=== PATIENT | female | born 1945 | race Caucasian/White ===

== ENCOUNTER 2018-04-03 09:49 | Day surgery (SDC) | payer MEDICARE ==
[~2018-04-03] VITALS: Ht 162.6 cm; Wt 82.6 kg
[~2018-04-03 09:49] MED LIST: AMLO10 PO; CITA20 PO; CLOP75 PO; DIAZ5 PO; DULO30 PO; ESOM20 PO; HYDACE5 PO; HYDCHL12.5 PO; LOPE2C PO; LORA10ER PO; POTCHL10ER PO; PRAV40 PO; Protonix40 MG PO; Sleep Aid25 M1 PO; Ziac 10-6.25 M1 EACH PO
== END 2018-04-03 22:45 | disposition home or self-care (01) ==
LOC: ORSCMMR 09:49 → ORD 11:00 → ORSCMMR 22:45
PROVIDERS: Internal Medicine Gastroenterology
PROC: 0DBN8ZX Excision of Sigmoid Colon, Via Natural or Artificial Opening Endoscopic, Diagnostic (ICD-10-PCS; principal; 2018-04-03 11:00)
PROC: 0DBK8ZX Excision of Ascending Colon, Via Natural or Artificial Opening Endoscopic, Diagnostic (ICD-10-PCS; principal; 2018-04-03 11:00)
PROC: 0DBM8ZX Excision of Descending Colon, Via Natural or Artificial Opening Endoscopic, Diagnostic (ICD-10-PCS; principal; 2018-04-03 11:00)
DX: R10.33 Periumbilical pain (principal); R19.7 Diarrhea, unspecified; K63.5 Polyp of colon; D12.2 Benign neoplasm of ascending colon; D12.3 Benign neoplasm of transverse colon; K57.30 Diverticulosis of large intestine without perforation or abscess without bleeding; F17.210 Nicotine dependence, cigarettes, uncomplicated; I69.320 Aphasia following cerebral infarction; I69.331 Monoplegia of upper limb following cerebral infarction affecting right dominant side
CPT/HCPCS: 88305; J0461; J7120

== ENCOUNTER 2023-06-07 12:12 | Emergency (ER) | payer MEDICARE ==
[~2023-06-07] VITALS: Ht 162.6 cm; Wt 65.8 kg
[~2023-06-07 12:12] MED LIST changes: +ALBU2.5V5 INH; +ALBU90OI INH; +Bisoprolol Fuma10 MG PO; +CELEXA40 M1 PO; -CITA20 PO; +DULERA 100 MCG/13 GM INH; +ELIQUIS5 M2 PO; +FAMO20 PO; +FURO20 PO; +METO100ER PO; +METO50ER PO; +PHENA200 PO; +POTA8 PO; -PRAV40 PO; +PRAVASTATIN SOD40 MG PO; +PRED20 PO; -Ziac 10-6.25 M1 EACH PO
[2023-06-07] MEDS ORDERED: LOSA25 PO (12:55)
[2023-06-07] MEDS ORDERED: METO50ER PO (12:56)
[2023-06-07] MEDS ORDERED: METO100ER PO (12:57)
[2023-06-07] MEDS ORDERED: TRAZ50 PO (12:58)
[2023-06-07] MEDS ORDERED: SERT100 PO (12:58)
[2023-06-07] MEDS ORDERED: IPRAT-ALBUT 0.5-3 ML INH (12:59)
[2023-06-07] MEDS ORDERED: Voltaren100 GM TOP ×3 (13:00→13:55)
[2023-06-07] MEDS ORDERED: ACET500 PO (13:55)
[2023-06-07] MEDS ORDERED: Robaxin750 MG PO (13:55)
[2023-06-07 15:31] VITALS: BP 109/63
== END 2023-06-07 15:50 | disposition home or self-care (01) ==
LOC: ER 12:12
DX: M25.552 Pain in left hip (principal); I10 Essential (primary) hypertension; I09.9 Rheumatic heart disease, unspecified; M19.90 Unspecified osteoarthritis, unspecified site; J44.9 Chronic obstructive pulmonary disease, unspecified; K21.9 Gastro-esophageal reflux disease without esophagitis; G47.00 Insomnia, unspecified; Z86.73 Personal history of transient ischemic attack (TIA), and cerebral infarction without residual deficits; F17.210 Nicotine dependence, cigarettes, uncomplicated; Z79.899 Other long term (current) drug therapy; Z88.5 Allergy status to narcotic agent; Z88.6 Allergy status to analgesic agent; W19.XXXA Unspecified fall, initial encounter; Y92.009 Unspecified place in unspecified non-institutional (private) residence as the place of occurrence of the external cause
CPT/HCPCS: 73502; 99284-25; A9270

== ENCOUNTER 2023-07-11 01:44 | Inpatient (IN) | payer MEDICARE ==
[~2023-07-11] VITALS: Ht 162.6 cm; Wt 65.8 kg
[~2023-07-11 01:44] MED LIST changes: +ACET500 PO; +IPRATROPIUM BRO30 ML; +LOSA25 PO; +Robaxin750 MG PO; +SERT100 PO; +TRAZ50 PO; +Voltaren100 GM TOP
[2023-07-11 02:24] LABS: Albumin, Blood 3.3 g/dL (3.4-5.0); Albumin/Globulin Ratio 0.8 (0.8-1.8); Bilirubin, Total 0.9 mg/dL (0.1-1.0); Calcium, Blood 8.8 mg/dL (8.5-10.1); Creatinine, Blood 0.48 mg/dL (0.40-1.00); Potassium, Blood 4.5 mmol/L (3.5-5.5); Total Protein, Blood 7.3 g/dL (6.4-8.2)
[2023-07-11 02:45] LABS: BASOPHILS ABSOLUTE AUTO 0.08 K/mm3 (0.00-0.23); BASOPHILS PERCENT AUTO 1 % (0-2); EOSINOPHILS ABSOLUTE AUTO 0.03 K/mm3 (0.00-0.68); EOSINOPHILS PERCENT AUTO 0 % (0-6); Hematocrit 42.2 % (33.0-51.0); Hemoglobin 12.8 g/dL (11.5-16.0); IMMATURE GRAN ABSOLUTE AUTO 0.09 K/mm3 (0.00-0.10); IMMATURE GRAN PERCENT AUTO 1 % (0-1); LYMPHOCYTES ABSOLUTE AUTO 2.34 K/mm3 (0.84-5.20); LYMPHOCYTES PERCENT AUTO 15 % (21-46); MONOCYTES ABSOLUTE AUTO 1.05 K/mm3 (0.16-1.47); MONOCYTES PERCENT AUTO 7 % (4-13); Mean Corpuscular HGB 25.7 pg (26.0-34.0); Mean Corpuscular HGB Conc 30.3 g/dL (31.5-36.5); Mean Corpuscular Volume 85 fL (80-100); NEUTROPHILS ABSOLUTE AUTO 12.14 K/mm3 (1.96-9.15); NEUTROPHILS PERCENT AUTO 77 % (41-73); Platelet Count 251 K/mm3 (150-400); RDW Coefficient Variation 17.9 % (11.7-14.2); RDW Standard Deviation 54.7 fL (35.1-46.3); Red Blood Cell Count 4.99 M/mm3 (3.80-5.20); White Blood Cell Count 15.73 K/mm3 (4.00-11.30)
[2023-07-11 02:58] LABS: Source, Urine Clean Catch
[2023-07-11 03:27] LABS: Bilirubin, Urine Neg (Neg); Blood, Urine 1+ (Neg); Glucose Qualitative, Urine Neg (Neg); Ketones, Urine Neg (Neg); Leukocyte Esterase, Urine Neg (Neg); Nitrite, Urine Pos (Neg); Protein, Urine 3+ (Neg); Urobilinogen, Urine NORM (Normal)
[2023-07-11] MEDS ORDERED: ELIQUIS5 M2 PO (03:30)
[2023-07-11 03:33] LABS: Appearance, Urine Cloudy (Clear); Color, Urine Yellow (P-Yellow)
[2023-07-11 03:34] LABS: Amorphous Mod (0-Heavy); Bacteria Few /hpf; Red Blood Cells, Urine 0-2 /hpf (0-2); Squamous Epithelial Cells Not Seen /hpf (Few); White Blood Cells, Urine 0-2 /hpf (0-5)
[2023-07-11 03:56] LABS: Influenza A, PCR NEGATIVE (NEGATIVE); Influenza B, PCR NEGATIVE (NEGATIVE); Resp Syncytial Virus, PCR NEGATIVE (NEGATIVE); SARS-Cov-2 (COVID-19) PCR, MMC NEGATIVE (NEGATIVE)
[2023-07-11 06:31] VITALS: BP 129/59
[2023-07-11 15:26] VITALS: BP 157/63
[2023-07-11] MEDS ORDERED: METO50ER PO (16:26)
--- NOTE | 2023-07-11 16:35 | NUR ---
PT IS A/OX3, FORGETFULL, PLEASANT AND COOPERATVE, EASILY REDIRECTED. PT WAS TITRATED OFF O2 WHILE UP , HOWEVER, NEEDED O2 WHILE LYING DOWN THIS AFTERNOON. PT REPORTS SOME LEFT HIP AND SHOULDER PAIN WHEN AMBULATING TODAY. SHE THOUGHT IT WAS CAUSED BY A RECENT FALL AT HOME. THE PT WAS UP IN THE CHAIR FOR MOST OF THE DAY. PT REMOVED THE MEASURING DEVICE FROM THE TOILLET THIS AFTERNOON AND HAD SEVERAL UNMEASURED VOIDS, SO UNABLE TO GET ACURATE I&0'S AT THIS TIME. CALL LIGHT IN REACH, THE PT IS IN THE CHAIR AT THIS TIME
[2023-07-11 19:22] VITALS: BP 143/74
--- NOTE | 2023-07-11 21:45 | NUR ---
PATIENT ASKED HELPER MARBLE FINISHER TO LOOK IN HER JACKET FOR HER GLASSES. UPON LOOKING IN PATIENTS JACKETS HELPER MARBLE FINISHER CAME UPON A DYE PADDER OPERATOR AND PART OF A CIGARETTE. HELPER MARBLE FINISHER NOTIFIED THIS RN. THIS RN EDUCATED PATIENT ON FACILITY POLICY-PATIENT EDUCATED AND AGREED TO HAVE HER DYE PADDER OPERATOR LOCKED UP AND CIGARETTE THROWN AWAY.
[2023-07-12 02:01] VITALS: BP 150/72
[2023-07-12 05:51] LABS: BASOPHILS ABSOLUTE AUTO 0.09 K/mm3 (0.00-0.23); BASOPHILS PERCENT AUTO 1 % (0-2); EOSINOPHILS ABSOLUTE AUTO 0.13 K/mm3 (0.00-0.68); EOSINOPHILS PERCENT AUTO 1 % (0-6); Hematocrit 39.1 % (33.0-51.0); Hemoglobin 12.1 g/dL (11.5-16.0); IMMATURE GRAN ABSOLUTE AUTO 0.04 K/mm3 (0.00-0.10); IMMATURE GRAN PERCENT AUTO 0 % (0-1); LYMPHOCYTES ABSOLUTE AUTO 3.38 K/mm3 (0.84-5.20); LYMPHOCYTES PERCENT AUTO 23 % (21-46); MONOCYTES ABSOLUTE AUTO 0.97 K/mm3 (0.16-1.47); MONOCYTES PERCENT AUTO 7 % (4-13); Mean Corpuscular HGB 25.6 pg (26.0-34.0); Mean Corpuscular HGB Conc 30.9 g/dL (31.5-36.5); Mean Corpuscular Volume 83 fL (80-100); Mean Platelet Volume 9.7 fL (9.1-12.4); NEUTROPHILS ABSOLUTE AUTO 10.24 K/mm3 (1.96-9.15); NEUTROPHILS PERCENT AUTO 69 % (41-73); Platelet Count 227 K/mm3 (150-400); RDW Coefficient Variation 18.2 % (11.7-14.2); RDW Standard Deviation 54.1 fL (35.1-46.3); Red Blood Cell Count 4.73 M/mm3 (3.80-5.20); White Blood Cell Count 14.85 K/mm3 (4.00-11.30)
[2023-07-12 06:09] LABS: Bun/Creatinine Ratio 33.2 (12.0-20.0); Calcium, Blood 8.9 mg/dL (8.5-10.1); Creatinine, Blood 0.75 mg/dL (0.40-1.00); Potassium, Blood 3.7 mmol/L (3.5-5.5)
--- NOTE | 2023-07-12 06:18 | NUR ---
PATIENT IS AOX3 WITH CONFUSION-PATIENT EASILY REORIENTED. PATIENT CALLS APPROPRIATELY AND IS ABLE TO MAKE HER NEEDS KNOWN. GAVE PATIENT A BOOK TO READ-PATIENT DOES NOT HAVE HER READING GLASSES WITH HER-UNABLE TO FIND ALTERNATIVE SOURCE. PATIENT IS PLEASANT. BED EXIT ALARM ENGAGED FOR PATIENT SAFETY. PATIENT IS A 1P ASSIST W/FWW. PATIENT IS STRICT I&O'S W/DAILY WEIGHT. BED IS LOCKED IN THE LOWEST POSITION WITH CALL LIGHT IN REACH. NO S/S OF DISTRESS NOTED AT THIS TIME.
[2023-07-12 07:34] VITALS: BP 148/85
[2023-07-12 15:45] VITALS: BP 134/72
--- NOTE | 2023-07-12 18:30 | NUR ---
SHIFT SUMMARY PATIENT ALERT AND INTERACTIVE. PATIENT AMBULATING WITH STAND BY ASSIST IN THE HALLS. PATIENT USING WALKER FOR AMBULATION. PATIENT IMPULSIVE AND FORGETFUL AT TIMES. SAFETY ALARMS IN PLACE FOR FALL RISK. PATIENT STATES BREATHING MUCH BETTER. REPORTED THAT PATIENT HAD NOT BEEN RECIEVING HER DIRUETICS AT FACILITY BECAUSE OF DELAY FROM PHARMACY WITH REFILL. PATIENT TO DISCHARGE BACK TO FACILITY WHEN MEDICALLY STABLE.
[2023-07-12 19:26] VITALS: BP 139/51
--- NOTE | 2023-07-13 00:28 | NUR ---
2310: PT IMPULSIVE, SET OFF BED ALARM x2, PT KICKED HER LEG OFF THE EDGE OF THE BED. PT 1P SBA TO THE TOILET WITH FWW. PT HAS STEADY GAIT. THE 4 P'S OF PATIENT EXPERIENCE ASSESSED WITH EACH HOURLY ROUNDING CHECK. PT PLEASANT, AND UNDERSTANDS TO CALL BEFORE GETTING UP OOB. CONTINUOUS REMINDERS MADE. PRN APAP GIVEN TO PT FOR C/O KARIMI. FLUIDS ENCOURAGED TOO. 0030: PT CURRENTLY UP OOB IN CHAIR EATING A SNACK. CALL LIGHT WITHIN REACH, CHAIR ALARM TURNED ON. FREQUENT SAFETY CHECKS COMPLETED THROUGHOUT THE SHIFT. CALL LIGHT WITHIN REACH, WCTM.
[2023-07-13 04:33] VITALS: BP 145/89
--- NOTE | 2023-07-13 06:12 | NUR ---
END OF SHIFT SUMMARY PT FINALLY APPEARED TO BE ASLEEP AT AROUND 0445. PT 1P SBA WITH FWW AND BRP. NO EVENTS OVERNIGHT, PT STAYED IN BED. BED ALARM TURNED ON, ITEMS WITHIN REACH ON TABLE NEAR BED WITH CALL LIGHT. RESP RATE EVEN AND UNLABORED. WCTM.
[2023-07-13 07:29] LABS: Hematocrit 42.4 % (33.0-51.0); Mean Corpuscular HGB 25.5 pg (26.0-34.0); Mean Corpuscular HGB Conc 30.7 g/dL (31.5-36.5); Mean Corpuscular Volume 83 fL (80-100); Mean Platelet Volume 9.5 fL (9.1-12.4); Platelet Count 267 K/mm3 (150-400); RDW Coefficient Variation 18.6 % (11.7-14.2); RDW Standard Deviation 54.8 fL (35.1-46.3); Red Blood Cell Count 5.09 M/mm3 (3.80-5.20); White Blood Cell Count 10.14 K/mm3 (4.00-11.30)
[2023-07-13 07:35] VITALS: BP 129/85
[2023-07-13 08:22] LABS: Bun/Creatinine Ratio 29.6 (12.0-20.0); Calcium, Blood 9.1 mg/dL (8.5-10.1); Creatinine, Blood 0.74 mg/dL (0.40-1.00); Potassium, Blood 3.9 mmol/L (3.5-5.5)
[2023-07-13 08:30] LABS: BASOPHILS PERCENT MAN 1 % (0-2); EOSINOPHILS PERCENT MAN 3 % (0-6); LYMPHOCYTES % ATYPICAL MANUAL 2 % (0-0); LYMPHOCYTES ABSOLUTE MAN 3.34 K/mm3 (0.84-5.20); LYMPHOCYTES PERCENT MAN 31 % (21-46); MONOCYTES ABSOLUTE MAN 1.11 K/mm3 (0.16-1.47); MONOCYTES PERCENT MAN 11 % (4-13); NEUTROPHILS ABSOLUTE MAN 5.27 K/mm3 (1.96-9.15); SEG NEUTROPHILS PERCENT MAN 52 % (41-73); TOTAL CELLS COUNTED 100
[2023-07-13] MEDS ORDERED: Calcium Carbon500 MG PO (11:59)
[2023-07-13] MEDS ORDERED: NICO21TP TOP (12:01)
--- NOTE | 2023-07-13 14:00 | NUR ---
SHIFT SUMMARY AND DISCHARGE PATIENT DISCHARGED BACK TO [facility]. PATIENT ALERT AND INTERACTIVE. CONTINUES TO BE IMPULSIVE AT TIMES WHEN NEEDING TO GO TO THE BATHROOM. DISCHARGE PLAN FAXED TO [facility] PER CASE MANAGEMENT. DISCHARGE INSTRUCTIONS REVIEWED WITH PATIENT AND SON. IV DC'D. PATIENT TAKEN OUT VIA WHEELCHAIR BY THIS NURSE. BELONGINGS RETURNED TO PATIENT. ROOM CHECK DONE WITH PATIENT AND SON PRIOR TO DEPARTURE.
== END 2023-07-13 13:50 | disposition hospice, home (50) | DRG 291 ==
LOC: ER 01:44 → MEDS 05:50 → ENPENDDIS 07-13 10:36 → MEDS 07-13 13:50
PROVIDERS: Emergency Medicine; Family Medicine; Student in an Organized Health Care Education/Training Program; ADMIT Internal Medicine
DX: I11.0 Hypertensive heart disease with heart failure (principal); I50.33 Acute on chronic diastolic (congestive) heart failure; J96.01 Acute respiratory failure with hypoxia; R65.10 Systemic inflammatory response syndrome (SIRS) of non-infectious origin without acute organ dysfunction; I48.20 Chronic atrial fibrillation, unspecified; F17.210 Nicotine dependence, cigarettes, uncomplicated; Z71.6 Tobacco abuse counseling; Z66 Do not resuscitate; Z86.73 Personal history of transient ischemic attack (TIA), and cerebral infarction without residual deficits; M19.90 Unspecified osteoarthritis, unspecified site; F32.A Depression, unspecified; K21.9 Gastro-esophageal reflux disease without esophagitis; G47.00 Insomnia, unspecified; J44.9 Chronic obstructive pulmonary disease, unspecified; K58.9 Irritable bowel syndrome, unspecified; Z90.49 Acquired absence of other specified parts of digestive tract; Z90.710 Acquired absence of both cervix and uterus; Z90.79 Acquired absence of other genital organ(s); Z90.722 Acquired absence of ovaries, bilateral; Z98.890 Other specified postprocedural states; Z88.5 Allergy status to narcotic agent; Z88.8 Allergy status to other drugs, medicaments and biological substances; Z79.01 Long term (current) use of anticoagulants; Z79.52 Long term (current) use of systemic steroids; Z79.899 Other long term (current) drug therapy; Z11.52 Encounter for screening for COVID-19
CPT/HCPCS: 0241U; 36415; 71045; 80048; 80053; 81001; 83605; 83880; 84145; 84484; 85025; 85379; 87040; 93005; 93010; 94640; 94664; 94761; 94762; 96365; 96375; 99285-25; A9270; J0456; J0696; J1940; J7050

== ENCOUNTER 2023-12-09 01:02 | Inpatient (IN) | payer MEDICARE ==
[~2023-12-09] VITALS: Ht 167.6 cm; Wt 73.2 kg
[2023-12-09] VITALS (13 sets, daily range): BP systolic 129–168; BP diastolic 46–79
[~2023-12-09 01:02] MED LIST changes: +Calcium Carbon500 MG PO; +NICO21TP TOP
[2023-12-09] MEDS ORDERED: Ondansetron HCl 2 MG / ML 2ML Vial IV ONE (01:15)
[2023-12-09] MEDS ORDERED: Ipratropium Bromide INH 0.02% 0.5 mg/2.5ML Vial INH SCH (01:15)
[2023-12-09] MEDS ORDERED: MethylPREDNISolone Sod Succ 125 MG Vial IV ONE (01:15)
[2023-12-09] MEDS ORDERED: Albuterol 2.5 MG/3 ML VIAL INH ONE (01:15)
[2023-12-09 01:20] LABS: BASOPHILS ABSOLUTE AUTO 0.15 K/mm3 (0.00-0.23); BASOPHILS PERCENT AUTO 1 % (0-2); EOSINOPHILS ABSOLUTE AUTO 0.66 K/mm3 (0.00-0.68); EOSINOPHILS PERCENT AUTO 4 % (0-6); Hematocrit 45.8 % (33.0-51.0); Hemoglobin 14.3 g/dL (11.5-16.0); IMMATURE GRAN ABSOLUTE AUTO 0.05 K/mm3 (0.00-0.10); IMMATURE GRAN PERCENT AUTO 0 % (0-1); LYMPHOCYTES ABSOLUTE AUTO 4.65 K/mm3 (0.84-5.20); LYMPHOCYTES PERCENT AUTO 31 % (21-46); MONOCYTES PERCENT AUTO 6 % (4-13); Mean Corpuscular HGB 29.9 pg (26.0-34.0); Mean Corpuscular HGB Conc 31.2 g/dL (31.5-36.5); Mean Corpuscular Volume 96 fL (80-100); Mean Platelet Volume 9.2 fL (9.1-12.4); NEUTROPHILS ABSOLUTE AUTO 8.48 K/mm3 (1.96-9.15); NEUTROPHILS PERCENT AUTO 57 % (41-73); Platelet Count 322 K/mm3 (150-400); RDW Coefficient Variation 18.1 % (11.7-14.2); RDW Standard Deviation 64.4 fL (35.1-46.3); Red Blood Cell Count 4.78 M/mm3 (3.80-5.20); White Blood Cell Count 14.89 K/mm3 (4.00-11.30)
[2023-12-09 01:24] LABS: Base Excess Venous -0.4 mmol/L; Bicarbonate Venous 22.9 mmol/L (24.0-30.0); PCO2 Venous 59.8 mmHg (38-42); pH Blood Venous 7.26 (7.34-7.37)
[2023-12-09] MEDS ORDERED: BREZTRI AEROS10.7 GM INH (01:35)
[2023-12-09 01:43] LABS: Albumin, Blood 3.5 g/dL (3.4-5.0); Albumin/Globulin Ratio 0.9 (0.8-1.8); Bilirubin, Total 0.8 mg/dL (0.1-1.0); Bun/Creatinine Ratio 24.8 (12.0-20.0); Calcium, Blood 8.6 mg/dL (8.5-10.1); Creatinine, Blood 0.56 mg/dL (0.40-1.00); Globulin, Blood 3.9 g/dL (2.2-4.0); Total Protein, Blood 7.4 g/dL (6.4-8.2)
[2023-12-09 01:58] LABS: Influenza A, PCR NEGATIVE (NEGATIVE); Influenza B, PCR NEGATIVE (NEGATIVE); Resp Syncytial Virus, PCR NEGATIVE (NEGATIVE); SARS-Cov-2 (COVID-19) PCR, MMC NEGATIVE (NEGATIVE)
[2023-12-09] MEDS ORDERED: Ondansetron HCl 2 MG / ML 2ML Vial IV PRN (02:50)
[2023-12-09] MEDS ORDERED: Ipratropium/Albuterol SulF 2.5-0.5MG/3 ML Amp INH PRN (02:50)
[2023-12-09] MEDS ORDERED: Furosemide 10 MG/ML 4ML Vial IV ONE (03:00)
[2023-12-09] MEDS ORDERED: Azithromycin 500 MG in NS 250 ML IV SCH (03:03)
[2023-12-09] MEDS ORDERED: NS 250 ML IV ONE (04:12)
[2023-12-09 04:52] LABS: International Normalized Ratio 1.06; Prothrombin Time Results 11.3 Sec (9.7-11.5)
[2023-12-09] MEDS ORDERED: MethylPREDNISolone Sod Succ 125 MG Vial IV SCH (06:00)
[2023-12-09 06:20] LABS: BASOPHILS ABSOLUTE AUTO 0.03 K/mm3 (0.00-0.23); BASOPHILS PERCENT AUTO 0 % (0-2); EOSINOPHILS PERCENT AUTO 0 % (0-6); Hematocrit 43.4 % (33.0-51.0); Hemoglobin 13.6 g/dL (11.5-16.0); IMMATURE GRAN ABSOLUTE AUTO 0.04 K/mm3 (0.00-0.10); IMMATURE GRAN PERCENT AUTO 0 % (0-1); LYMPHOCYTES ABSOLUTE AUTO 0.45 K/mm3 (0.84-5.20); LYMPHOCYTES PERCENT AUTO 4 % (21-46); MONOCYTES ABSOLUTE AUTO 0.14 K/mm3 (0.16-1.47); MONOCYTES PERCENT AUTO 1 % (4-13); Mean Corpuscular HGB 29.5 pg (26.0-34.0); Mean Corpuscular HGB Conc 31.3 g/dL (31.5-36.5); Mean Corpuscular Volume 94 fL (80-100); Mean Platelet Volume 9.2 fL (9.1-12.4); NEUTROPHILS PERCENT AUTO 94 % (41-73); Platelet Count 287 K/mm3 (150-400); RDW Coefficient Variation 18.2 % (11.7-14.2); RDW Standard Deviation 62.4 fL (35.1-46.3); Red Blood Cell Count 4.61 M/mm3 (3.80-5.20); White Blood Cell Count 11.76 K/mm3 (4.00-11.30)
[2023-12-09 06:43] LABS: Albumin, Blood 3.4 g/dL (3.4-5.0); Albumin/Globulin Ratio 0.8 (0.8-1.8); Bun/Creatinine Ratio 21.9 (12.0-20.0); Calcium, Blood 8.8 mg/dL (8.5-10.1); Creatinine, Blood 0.59 mg/dL (0.40-1.00); Potassium, Blood 5.5 mmol/L (3.5-5.5); Total Protein, Blood 7.4 g/dL (6.4-8.2)
[2023-12-09 08:33] LABS: pH Blood Venous 7.36 (7.34-7.37)
[2023-12-09 08:34] LABS: Base Excess Venous 3.9 mmol/L; Bicarbonate Venous 26.1 mmol/L (24.0-30.0); PCO2 Venous 52.7 mmHg (38-42)
[2023-12-09] MEDS ORDERED: Furosemide 10 MG / ML 2ML Vial IV SCH ×2 (09:00)
[2023-12-09] MEDS ORDERED: CefTRIAXone Sodium 1,000 MG in NS 100 ML IV SCH (09:00)
[2023-12-09] MEDS ORDERED: Apixaban 5 MG Tab PO SCH (09:00)
[2023-12-09] MEDS ORDERED: Enoxaparin 40 MG/0.4 ML SYR SC SCH (09:00)
[2023-12-09] MEDS ORDERED: Nicotine 14 MG PATCH TOP SCH (09:25)
--- NOTE | 2023-12-09 14:50 | NUR ---
ARRIVAL TO ICU/TRANSFER TO PCU PT ARRIVES TO ICU AT 0810 FOR COPD EXACERBATION. PT RESIDENT AT [facility]. REPORTS SOB FOR UNKNOWN TIME. PT POOR HISTORIAN, WHEN ASKED QUESTIONS, PT STATES "DON'T YOU KNOW?" PT ORIENTED TO SELF, HOSPITAL AND YEAR. PT SPEAKING IN FULL SENTENCES. LUNGS c CRACKLES THROUGHOUT. 5L VIA NC, O2 SATS >92%. AFIB ON MONITOR. TOLERATING PO WELL. DIRUESED, PUREWICK IN PLACE. SON UPDATED IN ROOM, THEN CALLED TO INFORM OF TRANSFER TO PCU. ALL BELONGINGS SENT c PT TO PCU 5. REPORT TO ANAMARIA GUILLEN.
--- NOTE | 2023-12-09 15:10 | NUR ---
TRANSFER: PT ARRIVED TO PCU 5 @1450 VIA BED. PT ALERT AND ORIENTED X3, ABLE TO FOLLOW COMMANDS AND MAKE NEEDS KNOWN. POOR HISTORIAN. FORGETFUL AT TIMES, BED ALARM ON FOR SAFETY. MINIMAL R. SIDE DEFECIT NOTED, PT WITH HX OF CVA. AFEBRILE. BP STABLE. HR AFIB 70'S. SPO2 >96% ON 5L NC. LUNG SOUNDS COARSE THROUGHOUT, WHEEZES IN BASES. PULSES STRONG AND EQUAL THROUGHOUT. ABD SOFT, NON TENDER, BOWEL SOUNDS +. PUREWICK IN PLACE, CONNECTED TO LIS. PT ORIENTED TO ROOM AND CALL LIGHT SYSTEM, BED IN LOW. PT SON UPDATED ON ROOM CHANGE PER BANK COMPLIANCE OFFICER. CALL LIGHT IN REACH.
[2023-12-09] MEDS ORDERED: Famotidine 20 MG Tab PO PRN (15:55)
[2023-12-09] MEDS ORDERED: Loperamide HCl 2 MG Cap PO PRN (20:45)
[2023-12-09] MEDS ORDERED: Metoprolol Succinate 50 MG TABCR PO SCH (21:00)
[2023-12-09] MEDS ORDERED: Pravastatin Sodium 20 MG Tab PO SCH (21:00)
[2023-12-10 03:09] VITALS: BP 121/56
[2023-12-10 03:51] LABS: BASOPHILS ABSOLUTE AUTO 0.03 K/mm3 (0.00-0.23); BASOPHILS PERCENT AUTO 0 % (0-2); EOSINOPHILS PERCENT AUTO 0 % (0-6); Hematocrit 42.2 % (33.0-51.0); Hemoglobin 13.5 g/dL (11.5-16.0); IMMATURE GRAN ABSOLUTE AUTO 0.12 K/mm3 (0.00-0.10); IMMATURE GRAN PERCENT AUTO 1 % (0-1); LYMPHOCYTES ABSOLUTE AUTO 0.99 K/mm3 (0.84-5.20); LYMPHOCYTES PERCENT AUTO 5 % (21-46); MONOCYTES ABSOLUTE AUTO 0.39 K/mm3 (0.16-1.47); MONOCYTES PERCENT AUTO 2 % (4-13); Mean Corpuscular HGB 29.7 pg (26.0-34.0); Mean Corpuscular Volume 93 fL (80-100); Mean Platelet Volume 9.4 fL (9.1-12.4); NEUTROPHILS ABSOLUTE AUTO 18.99 K/mm3 (1.96-9.15); NEUTROPHILS PERCENT AUTO 93 % (41-73); Platelet Count 272 K/mm3 (150-400); RDW Coefficient Variation 17.9 % (11.7-14.2); RDW Standard Deviation 61.6 fL (35.1-46.3); Red Blood Cell Count 4.54 M/mm3 (3.80-5.20); White Blood Cell Count 20.52 K/mm3 (4.00-11.30)
[2023-12-10 04:16] LABS: Albumin, Blood 3.1 g/dL (3.4-5.0); Albumin/Globulin Ratio 0.8 (0.8-1.8); Bilirubin, Total 0.9 mg/dL (0.1-1.0); Bun/Creatinine Ratio 32.2 (12.0-20.0); Calcium, Blood 9.1 mg/dL (8.5-10.1); Creatinine, Blood 0.56 mg/dL (0.40-1.00); Globulin, Blood 3.7 g/dL (2.2-4.0); Potassium, Blood 4.1 mmol/L (3.5-5.5); Total Protein, Blood 6.8 g/dL (6.4-8.2)
--- NOTE | 2023-12-10 06:05 | NUR ---
SHIFT SUMMARY A/Ox3 AND COOPERATIVE WITH CARE. FORGETFUL AT TIMES, BUT EASILY REDIRECTABLE. ABLE TO MAKE HER NEEDS KNOWN. CARDIAC, REMAINS IN AFIB/AFLUTTER RANGING 70-80 S WITH NO REPORTS OF CP, PRESSURE, OR PALPITATIONS. SBP RANGING 120-150'S. RESPIRATORY, MAINTAINS SPO2 >90% ON 3-4L NC. DENIES SOB OR DYSPNEA AT REST. GI/, INTERMITTENT INCONTINENCE DURING THE NIGHT. PURWICK PLACED WITH GOOD EFFECT COLLECTING YELLOW URINE. DENIES ANY ABD TENDERNESS N/V. PT REPORTED INCREASED RUNNY STOOLS. IMODIUM GIVEN PER EMAR. POLST FORM UPDATED PER PT'S WISHES. NO NEW ORDERS AT THIS TIME, WILL REPORT TO ONCOMING RN. ROSITA AGRAWAL OF THIS NOTE.
--- NOTE | 2023-12-10 06:36 | NUR ---
CODE STATUS UPDATE PT ORIGINALLY WANTED TO UPDATE HER OLD POLST FORM THAT WAS ON RECORD FROM 2022. DR. RAYGOZA CAME TO BEDSIDE AND SPOKE AT LENGTH WITH PT ABOUT HER CODE STATUS. PT AGREED TO NEW POLST FORM AND DNR CODE STATUS. LATER THIS AM, PT CALLS THIS RN TO ROOM STATING SHE WISHES TO CHANGE HER CODE STATUS AGAIN, BUT THIS TIME TO DNI. THIS RN TALKED WITH PT AT LENGTH AT CODE STATUS TO ENSURE THE PT'S WISHES. DR. MCKEON NOTIFIED OF PT'S WANT TO CHANGE TO DNI. NEW ORDERS TO BE PLACED TO REFLECT PT'S CURRENT WISHES. NO OTHER ORDERS AT THIS TIME.
[2023-12-10 07:26] VITALS: BP 126/76
[2023-12-10] MEDS ORDERED: Lactobacil 2-S.Thermo-Bifido 1 1 Cap PO SCH (09:00)
[2023-12-10] MEDS ORDERED: Losartan Potassium 25 MG Tab PO SCH (09:00)
[2023-12-10] MEDS ORDERED: Sertraline HCl 100 MG Tab PO SCH (09:00)
[2023-12-10] MEDS ORDERED: Metoprolol Succinate 50 MG TABCR PO SCH (09:00)
[2023-12-10 12:09] VITALS: BP 152/69
--- NOTE | 2023-12-10 12:46 | NUR ---
REPORT FROM PRIMARY RN. THIS RN TO ASSUME CARE WHILE PRIMARY AT LUNCH. PT RESTING IN BED, CALL LIGHT IN REACH. DENIES ANY CURRENT NEEDS.
[2023-12-10 15:32] VITALS: BP 151/101
[2023-12-10] MEDS ORDERED: MethylPREDNISolone Sod Succ 125 MG Vial IV SCH (16:00)
--- NOTE | 2023-12-10 18:05 | NUR ---
SHIFT SUMMARY: PT HAS BEEN A&Ox4, FORGETFUL AT TIMES AND POOR HISTORIAN, COOPERATIVE W/ADALBERTO, CONNIE, NO NOTICEABLE STRENGTH DEFICITS. PT DENIES SOB, O2 SATS >93% CURRENTLY ON 2 L/MIN VIA NC, COUGH PRODUCTIVE OF SMALL AMOUNT WHITE/YELLOW SPUTUM, SAMPLE COLLECTED AND SENT TO LAB. PT DENIES CP, AFIB/FLUTTER ON MONITOR W/RATE CONTROLLED IN 70s-80s. HIGH AMOUNT U.O. THIS SHIFT, PUREWICK IN PLACE TO SUCTION, DRAINING YELLOW COLORED URINE. NO BM THIS SHIFT. PT HAS BEEN ONE PERSON ASSIST W/FWW, SPENDS MOST OF DAY IN THE RECLINER AT BEDSIDE. PT IS RESTING QUIETLY IN ROOM W/CALL LIGHT IN REACH. WILL CONTINUE TO MONITOR AND TREAT ACCORDINGLY UNTIL CHANGE OF SHIFT.
[2023-12-10 20:14] VITALS: BP 167/81
[2023-12-10] MEDS ORDERED: Acetaminophen 325 MG TABLET PO PRN (20:55)
[2023-12-10 23:19] VITALS: BP 123/78
[2023-12-11 03:40] VITALS: BP 104/83
[2023-12-11 04:14] LABS: BASOPHILS ABSOLUTE AUTO 0.02 K/mm3 (0.00-0.23); BASOPHILS PERCENT AUTO 0 % (0-2); EOSINOPHILS PERCENT AUTO 0 % (0-6); Hematocrit 43.4 % (33.0-51.0); Hemoglobin 13.9 g/dL (11.5-16.0); IMMATURE GRAN ABSOLUTE AUTO 0.13 K/mm3 (0.00-0.10); IMMATURE GRAN PERCENT AUTO 1 % (0-1); LYMPHOCYTES ABSOLUTE AUTO 0.75 K/mm3 (0.84-5.20); LYMPHOCYTES PERCENT AUTO 5 % (21-46); MONOCYTES ABSOLUTE AUTO 0.27 K/mm3 (0.16-1.47); MONOCYTES PERCENT AUTO 2 % (4-13); Mean Corpuscular HGB 29.6 pg (26.0-34.0); Mean Corpuscular Volume 93 fL (80-100); Mean Platelet Volume 9.5 fL (9.1-12.4); NEUTROPHILS ABSOLUTE AUTO 15.07 K/mm3 (1.96-9.15); NEUTROPHILS PERCENT AUTO 93 % (41-73); Platelet Count 317 K/mm3 (150-400); RDW Coefficient Variation 18.3 % (11.7-14.2); RDW Standard Deviation 62.4 fL (35.1-46.3); Red Blood Cell Count 4.69 M/mm3 (3.80-5.20); White Blood Cell Count 16.24 K/mm3 (4.00-11.30)
[2023-12-11 04:36] LABS: Albumin, Blood 3.1 g/dL (3.4-5.0); Anion Gap 11 mmol/L (3-11); Blood Urea Nitrogen 31 mg/dL (8-24); Bun/Creatinine Ratio 49.4 (12.0-20.0); CO2, Blood 29 mmol/L (21-32); Chloride, Blood 101 mmol/L (98-108); Creatinine, Blood 0.63 mg/dL (0.40-1.00); Glomerular Filtration Rate 92 (60-); Glucose, Blood 182 mg/dL (70-99); Phosphorus, Blood 3.5 mg/dL (2.5-4.9); Potassium, Blood 3.8 mmol/L (3.5-5.5); Sodium, Blood 137 mmol/L (136-145)
--- NOTE | 2023-12-11 05:30 | NUR ---
SHIFT SUMMARY A/Ox3 AND COOPERATIVE WITH CARE. FORGETFUL AT TIMES, BUT EASILY REDIRECTABLE. ABLE TO MAKE HER NEEDS KNOWN. CARDIAC, REMAINS IN AFIB/AFLUTTER RANGING 60-80' S WITH NO REPORTS OF CP, PRESSURE, OR PALPITATIONS. SBP ELEVATED RANGING 120-160'S. RESPIRATORY, MAINTAINS SPO2 >90% ON 1-2L NC. DENIES SOB OR DYSPNEA AT REST. GI/, INTERMITTENT INCONTINENCE DURING THE NIGHT. PURWICK PLACED WITH GOOD EFFECT COLLECTING YELLOW URINE. DENIES ANY ABD TENDERNESS N/V. NO REPORTS OF RUNNY STOOL THIS SHIFT. NO NEW ORDERS AT THIS TIME, WILL REPORT TO ONCOMING RN. ROSITA AGRAWAL OF THIS NOTE.
[2023-12-11 07:37] VITALS: BP 139/81
[2023-12-11] MEDS ORDERED: Potassium Chloride 10 Meq Tablet SA PO ONE (08:00)
[2023-12-11] MEDS ORDERED: Furosemide 40 MG Tab PO SCH (09:00)
--- NOTE | 2023-12-11 09:48 | NUR ---
PT MEDICATED FOR NAUSEA PER EMAR
[2023-12-11 12:04] VITALS: BP 148/85
--- NOTE | 2023-12-11 13:20 | NUR ---
ASSUMING CARE OF PT WHILE PRIMARY RN TO LUNCH. PT SLEEPING IN BED. SHE IS MED STATUS WITH NO TELE ORDERS. VITALS ARE STABLE. CALL LIGHT IN REACH, SHE IS ABLE TO MAKE NEEDS KNOWN
[2023-12-11 15:50] VITALS: BP 155/106
--- NOTE | 2023-12-11 16:38 | NUR ---
Met with pt this afternoon. She is pleasantly confused, and cooperative. She tells me she owns her home in [place], and that's where she currently lives alone. However, her chart and daughter in law David shows she lives at [facility] in [place]. Reached out to [facility], received copy of pt's POLST that is filled out as "Attempt Resuscitation/CPR" in section A, and "Selective Treatment" in section B. This is directly contraindicated on the form itself. Will discuss further with pt, family and physician in the am. According to David, this is the patient's 4th hospitalization in the past year for SOB. We discussed hospice as an option. Both DIL and CG at [facility] both state this is appropriate given her increase in COPD and hospitalizations, but will have further discussion with pt's son before any changes made to patient's plan of care.
--- NOTE | 2023-12-11 18:05 | NUR ---
SHIFT SUMMARY/TRANSFER: PT HAS BEEN A&Ox3-4, ANSWERS QUESTIONS APPROPRIATELY, FORGETFUL AT TIMES AND POOR HISTORIAN. PT CONTINUES TO REPORT IMPROVEMENT TO SOB, O2 SATS HAVE BEEN MAINTAINED >93% ON 1 L/MIN VIA NC, COUGH SEEMS TO HAVE IMPROVED COMPARED TO YESTERDAY. PT ALSO DENIES CP, AFIB/FLUTTER ON MONITOR, RATE CONTROLLED IN 70s-80s. NO BM THIS SHIFT. HIGH U.O. CONTINUES THIS SHIFT, PUREWICK SET TO SUCTION AND DRAINING YELLOW COLORED URINE. PT TOLERATING ONE PERSON ASSIST WHILE TRANSFERING. PT's ADMISSION STATUS CHANGED TO MEDICAL, NEW ROOM ASSIGNMENT RECEIVED, REPORT TO NAMITA GUILLEN, PT TRANSFERED W/OUT INCIDENT.
[2023-12-11 19:40] VITALS: BP 144/74
[2023-12-11] MEDS ORDERED: MethylPREDNISolone Sod Succ 125 MG Vial IV SCH (21:00)
[2023-12-12] MEDS ORDERED: ALBUTEROL SULFATE INH (01:05)
[2023-12-12] MEDS ORDERED: BENZ100A PO (01:06)
[2023-12-12] MEDS ORDERED: LOPE2C PO (01:07)
[2023-12-12 04:46] VITALS: BP 142/80
[2023-12-12 05:06] LABS: BASOPHILS ABSOLUTE AUTO 0.01 K/mm3 (0.00-0.23); BASOPHILS PERCENT AUTO 0 % (0-2); EOSINOPHILS PERCENT AUTO 0 % (0-6); Hematocrit 43.4 % (33.0-51.0); Hemoglobin 13.9 g/dL (11.5-16.0); IMMATURE GRAN ABSOLUTE AUTO 0.09 K/mm3 (0.00-0.10); IMMATURE GRAN PERCENT AUTO 1 % (0-1); LYMPHOCYTES ABSOLUTE AUTO 1.02 K/mm3 (0.84-5.20); LYMPHOCYTES PERCENT AUTO 7 % (21-46); MONOCYTES ABSOLUTE AUTO 0.39 K/mm3 (0.16-1.47); MONOCYTES PERCENT AUTO 3 % (4-13); Mean Corpuscular HGB 29.8 pg (26.0-34.0); Mean Corpuscular Volume 93 fL (80-100); Mean Platelet Volume 9.4 fL (9.1-12.4); NEUTROPHILS ABSOLUTE AUTO 12.83 K/mm3 (1.96-9.15); NEUTROPHILS PERCENT AUTO 90 % (41-73); Platelet Count 317 K/mm3 (150-400); RDW Coefficient Variation 18.2 % (11.7-14.2); RDW Standard Deviation 62.9 fL (35.1-46.3); Red Blood Cell Count 4.66 M/mm3 (3.80-5.20); White Blood Cell Count 14.34 K/mm3 (4.00-11.30)
[2023-12-12] MEDS ORDERED: NS 250 ML IV PRN (05:10)
[2023-12-12 05:35] LABS: Albumin, Blood 3.2 g/dL (3.4-5.0); Anion Gap 6 mmol/L (3-11); Blood Urea Nitrogen 31 mg/dL (8-24); Bun/Creatinine Ratio 51.8 (12.0-20.0); CO2, Blood 31 mmol/L (21-32); Calcium, Blood 8.8 mg/dL (8.5-10.1); Chloride, Blood 99 mmol/L (98-108); Glomerular Filtration Rate 93 (60-); Glucose, Blood 142 mg/dL (70-99); Phosphorus, Blood 3.9 mg/dL (2.5-4.9); Potassium, Blood 4.3 mmol/L (3.5-5.5); Sodium, Blood 132 mmol/L (136-145)
[2023-12-12 07:41] VITALS: BP 129/73
--- NOTE | 2023-12-12 07:46 | NUR ---
SHIFT SUMMARY PT IS A&OX3, FORGETFUL, BUT COOPERATIVE. PT AWAKE MUCH OF THE NOC. [place]. VSS ON 1L NC. C/O KARIMI, MANAGED WITH 650 MG PO TYLENOL. PT ALSO NAUSEATED, IV ZOFRAN GIVEN. TOLERATING A HEART HEALTHY DIET. WICKING SYSTEM DRAINING CLEAR, YELLOW URINE. NO BM THIS SHIFT. BED IN LOWEST POSITION, CALL LIGHT WITHIN REACH. BED ALARM SET FOR PT'S SAFETY.
[2023-12-12] MEDS ORDERED: PredniSONE 20 MG Tab PO SCH (12:00)
[2023-12-12 15:28] VITALS: BP 146/93
--- NOTE | 2023-12-12 18:10 | NUR ---
SHIFT SUMMARY- PT HAS HAD NO ACUTE CHANGE T/O THE SHIFT. SHE IS A 1PA WITH AMBULATION SHE GETS "DIZZY" WITH POSITION CHANGES. SHE HAD A SHOWER. IV STEROIDS CHANGED TO PO TODAY. PLAN FOR POSSIBLE DC TOMORROW. PT SITTING UP IN BED EATING HER DINNER NO S&S OF DISTRESS NOTED. PT BECAME A BIT CONFUSED THIS EVENING AND GOT OUT OF BED TO ATTEMPT TO FIND HER CLOTHES TO GET READY TO GO. PT REDIRECTED AND IS AWARE SHE IS NOT LEAVING UNTIL LATER TOMORROW, AT THE SOONEST. PT IN BED, CALL LIGHT IN REACH BLASTING MACHINE OPERATOR ASSISTING WITH ATTENDS CHANGE AT THIS TIME. NO S&S OF DISTRESS.
[2023-12-12 19:54] VITALS: BP 160/76
[2023-12-12] MEDS ORDERED: Amoxicillin/Clavulanate K 875 MG Tab PO SCH (21:00)
[2023-12-13 03:43] VITALS: BP 144/81
[2023-12-13 04:57] LABS: BASOPHILS ABSOLUTE AUTO 0.03 K/mm3 (0.00-0.23); BASOPHILS PERCENT AUTO 0 % (0-2); EOSINOPHILS ABSOLUTE AUTO 0.01 K/mm3 (0.00-0.68); EOSINOPHILS PERCENT AUTO 0 % (0-6); Hematocrit 45.2 % (33.0-51.0); Hemoglobin 14.5 g/dL (11.5-16.0); IMMATURE GRAN ABSOLUTE AUTO 0.09 K/mm3 (0.00-0.10); IMMATURE GRAN PERCENT AUTO 1 % (0-1); LYMPHOCYTES ABSOLUTE AUTO 2.93 K/mm3 (0.84-5.20); LYMPHOCYTES PERCENT AUTO 19 % (21-46); MONOCYTES ABSOLUTE AUTO 1.32 K/mm3 (0.16-1.47); MONOCYTES PERCENT AUTO 9 % (4-13); Mean Corpuscular HGB 29.8 pg (26.0-34.0); Mean Corpuscular HGB Conc 32.1 g/dL (31.5-36.5); Mean Corpuscular Volume 93 fL (80-100); Mean Platelet Volume 9.4 fL (9.1-12.4); NEUTROPHILS ABSOLUTE AUTO 11.19 K/mm3 (1.96-9.15); NEUTROPHILS PERCENT AUTO 72 % (41-73); Platelet Count 332 K/mm3 (150-400); RDW Standard Deviation 61.6 fL (35.1-46.3); Red Blood Cell Count 4.87 M/mm3 (3.80-5.20); White Blood Cell Count 15.57 K/mm3 (4.00-11.30)
[2023-12-13 05:19] LABS: Bun/Creatinine Ratio 46.4 (12.0-20.0); Calcium, Blood 8.6 mg/dL (8.5-10.1); Creatinine, Blood 0.65 mg/dL (0.40-1.00); Potassium, Blood 4.1 mmol/L (3.5-5.5)
--- NOTE | 2023-12-13 05:53 | NUR ---
SHIFT SUMMARY: Pt is admitted for COPD exacerbation and is a DNR. is alert and able to make needs known. ADLs have been 1p but did not get out of bed during the night. Denies pain or discomfort when asked.
[2023-12-13 08:03] VITALS: BP 152/91
[2023-12-13] MEDS ORDERED: PredniSONE 20 MG Tab PO SCH (09:00)
[2023-12-13] MEDS ORDERED: ACET500 PO (11:50)
[2023-12-13] MEDS ORDERED: FURO40 PO (11:53)
[2023-12-13] MEDS ORDERED: AMOX875 PO (11:54)
[2023-12-13] MEDS ORDERED: Nicoderm Cq1 EAC1 TOP (11:55)
[2023-12-13] MEDS ORDERED: VISBIOME 112.51 EACH PO (11:55)
[2023-12-13] MEDS ORDERED: PRED20 PO (11:58)
--- NOTE | 2023-12-13 12:41 | NUR ---
CASE CONFERENCE: T/C WITH PT'S SON SAI REGARDING DNI STATUS. HE V/U AND CHANGED PT'S CODE STATUS TO DNR. CLIVE DUTTARN WITNESS TO T/C WITH SAI, SIGNED BY DR MCGARRY, SENT TO MED RECS AND STATE REGISTRY. CHANGING IN CHART AND SENDING ORIGINAL TO [facility]. ORIGINAL GIVEN TO FILTER WASHER TO PLACE IN PT'S RETURN PACKET.
--- NOTE | 2023-12-13 13:49 | NUR ---
CALLED [facility]- THEY WILL ENSURE THE PT MEDS ARE AT THE FACILITY TONIGHT. FACILITY IS AWARE THE PT IS RETURNING TODAY. FAMILY WILL TRANSPORT THE PT BACK TO HER HOME, AN ADULT FOSTER HOME IN [place]. PT HAS BEEN ON 1L VIA NC, REMOVED THE O2 TO ENSURE THE PT CAN MAINTAIN SATS AND PLACED HER ON O2 MONITOR, SATS 94% OR GREATER ON ROOM AIR.
--- NOTE | 2023-12-13 14:28 | NUR ---
DISCHARGE NOTE- PT RETURNING TO HER FACILITY. WILL PROVIDE WITH WRITTEN DISCHARGE INSTRUCTIONS. FACILITY AWARE SHE IS RETURNING HOME AFTER 5PM. MEDS FAXED TO [facility], PER THE FACILITY'S REQUEST. PT ON ROOM AIR, NO S&S OF DISTRESS NOTED.
--- NOTE | 2023-12-13 18:31 | NUR ---
DISCHARGE NOTE- PT DISCHARGED TO HER FACILITY. SON PRESENT TO PICK HER UP AND WAS GIVEN VERBAL AND PRINTED DISCHARGE INSTRUCTIONS AND ACKNOWLEDGED UNDERSTANDING OF THEM. IV DC'D PRIOR TO DISCHARGE.
== END 2023-12-13 17:29 | disposition home or self-care (01) | DRG 291 ==
LOC: ER 01:02 → ERHOLD 01:03 → PCU 02:48 → ERHOLD 02:48 → ICUE 02:48 → PCU 15:03 → MEDS 12-11 18:21
PROVIDERS: Family Medicine; Internal Medicine; Student in an Organized Health Care Education/Training Program; ADMIT Internal Medicine
PROC: 5A09357 Assistance with Respiratory Ventilation, Less than 24 Consecutive Hours, Continuous Positive Airway Pressure (ICD-10-PCS; principal; 2023-12-09)
DX: I11.0 Hypertensive heart disease with heart failure (principal); I50.33 Acute on chronic diastolic (congestive) heart failure; J96.21 Acute and chronic respiratory failure with hypoxia; J44.1 Chronic obstructive pulmonary disease with (acute) exacerbation; I69.351 Hemiplegia and hemiparesis following cerebral infarction affecting right dominant side; E87.4 Mixed disorder of acid-base balance; I48.20 Chronic atrial fibrillation, unspecified; F17.210 Nicotine dependence, cigarettes, uncomplicated; E78.5 Hyperlipidemia, unspecified; F41.8 Other specified anxiety disorders; F03.90 Unspecified dementia, unspecified severity, without behavioral disturbance, psychotic disturbance, mood disturbance, and anxiety; M19.90 Unspecified osteoarthritis, unspecified site; K21.9 Gastro-esophageal reflux disease without esophagitis; G47.00 Insomnia, unspecified; Z98.890 Other specified postprocedural states; Z90.49 Acquired absence of other specified parts of digestive tract; Z88.8 Allergy status to other drugs, medicaments and biological substances; Z88.5 Allergy status to narcotic agent; Z79.899 Other long term (current) drug therapy; Z79.01 Long term (current) use of anticoagulants; Z79.51 Long term (current) use of inhaled steroids; Z90.710 Acquired absence of both cervix and uterus; Z90.722 Acquired absence of ovaries, bilateral
CPT/HCPCS: 0241U; 36415; 71045; 80048; 80053; 80069; 82803; 83735; 83880; 84145; 84484; 85025; 85610; 87070; 87205; 93005; 93010; 94640; 94644; 94660; 94664; 94760; 94762; 96374; 96375; 97110; 97116; 97162; 97165; 97535; 99285-25; A9270; G0378; J0456; J0696; J1940; J2405; J2919; J7050; J7512

== ENCOUNTER 2024-01-01 18:39 | Inpatient (IN) | payer MEDICARE ==
[~2024-01-01] VITALS: Ht 157.5 cm; Wt 73.7 kg
[~2024-01-01 18:39] MED LIST changes: +ALBUTEROL SULFATE INH; +AMOX875 PO; +BENZ100A PO; +BREZTRI AEROS10.7 GM INH; +FURO40 PO; +Nicoderm Cq1 EAC1 TOP; +TRAZ100 PO; -TRAZ50 PO; +VISBIOME 112.51 EACH PO
[2024-01-01] MEDS ORDERED: Albuterol 2.5 MG/3 ML VIAL INH SCH (19:05)
[2024-01-01 19:18] LABS: BASOPHILS ABSOLUTE AUTO 0.07 K/mm3 (0.00-0.23); BASOPHILS PERCENT AUTO 1 % (0-2); EOSINOPHILS ABSOLUTE AUTO 0.41 K/mm3 (0.00-0.68); EOSINOPHILS PERCENT AUTO 4 % (0-6); Hematocrit 38.9 % (33.0-51.0); IMMATURE GRAN ABSOLUTE AUTO 0.05 K/mm3 (0.00-0.10); IMMATURE GRAN PERCENT AUTO 0 % (0-1); LYMPHOCYTES ABSOLUTE AUTO 1.48 K/mm3 (0.84-5.20); LYMPHOCYTES PERCENT AUTO 13 % (21-46); MONOCYTES ABSOLUTE AUTO 0.39 K/mm3 (0.16-1.47); MONOCYTES PERCENT AUTO 3 % (4-13); Mean Corpuscular HGB 30.5 pg (26.0-34.0); Mean Corpuscular HGB Conc 30.8 g/dL (31.5-36.5); Mean Corpuscular Volume 99 fL (80-100); Mean Platelet Volume 9.7 fL (9.1-12.4); NEUTROPHILS ABSOLUTE AUTO 9.07 K/mm3 (1.96-9.15); NEUTROPHILS PERCENT AUTO 79 % (41-73); Platelet Count 266 K/mm3 (150-400); RDW Coefficient Variation 18.6 % (11.7-14.2); RDW Standard Deviation 66.9 fL (35.1-46.3); Red Blood Cell Count 3.94 M/mm3 (3.80-5.20); White Blood Cell Count 11.47 K/mm3 (4.00-11.30)
[2024-01-01 19:40] LABS: Albumin/Globulin Ratio 0.8 (0.8-1.8); Bilirubin, Total 0.9 mg/dL (0.1-1.0); Bun/Creatinine Ratio 17.7 (12.0-20.0); Calcium, Blood 8.2 mg/dL (8.5-10.1); Creatinine, Blood 0.85 mg/dL (0.40-1.00); Globulin, Blood 3.7 g/dL (2.2-4.0); Total Protein, Blood 6.7 g/dL (6.4-8.2)
[2024-01-01] MEDS ORDERED: Furosemide 10 MG/ML 4ML Vial IV ONE (20:00)
[2024-01-01 20:08] LABS: Influenza A, PCR NEGATIVE (NEGATIVE); Influenza B, PCR NEGATIVE (NEGATIVE); Resp Syncytial Virus, PCR NEGATIVE (NEGATIVE); SARS-Cov-2 (COVID-19) PCR, MMC NEGATIVE (NEGATIVE)
[2024-01-01] MEDS ORDERED: Ipratropium/Albuterol SulF 2.5-0.5MG/3 ML Amp INH ONE (20:50)
[2024-01-01] MEDS ORDERED: Acetaminophen 500 MG Tab PO PRN (22:35)
[2024-01-01] MEDS ORDERED: Ipratropium/Albuterol SulF 2.5-0.5MG/3 ML Amp INH SCH (22:35)
[2024-01-01] MEDS ORDERED: Calcium Carbonate 500 MG Tab Chew PO PRN (22:35)
[2024-01-01] MEDS ORDERED: Albuterol 2.5 MG/3 ML VIAL INH PRN (22:35)
[2024-01-01] MEDS ORDERED: TraZODone HCl 100 MG Tab PO PRN (22:40)
[2024-01-01] MEDS ORDERED: Magnesium Hydroxide Conc 10 ML UDC PO PRN (22:50)
[2024-01-01] MEDS ORDERED: CefTRIAXone Sodium 1,000 MG in NS 100 ML IV ONE (22:55)
[2024-01-01 23:35] VITALS: BP 107/76
[2024-01-02] MEDS ORDERED: MethylPREDNISolone Sod Succ 40 MG VIAL IV SCH
[2024-01-02 05:42] LABS: BASOPHILS ABSOLUTE AUTO 0.02 K/mm3 (0.00-0.23); BASOPHILS PERCENT AUTO 0 % (0-2); EOSINOPHILS PERCENT AUTO 0 % (0-6); Hematocrit 38.7 % (33.0-51.0); Hemoglobin 12.1 g/dL (11.5-16.0); IMMATURE GRAN ABSOLUTE AUTO 0.04 K/mm3 (0.00-0.10); IMMATURE GRAN PERCENT AUTO 0 % (0-1); LYMPHOCYTES ABSOLUTE AUTO 0.63 K/mm3 (0.84-5.20); LYMPHOCYTES PERCENT AUTO 7 % (21-46); MONOCYTES ABSOLUTE AUTO 0.09 K/mm3 (0.16-1.47); MONOCYTES PERCENT AUTO 1 % (4-13); Mean Corpuscular HGB 30.6 pg (26.0-34.0); Mean Corpuscular HGB Conc 31.3 g/dL (31.5-36.5); Mean Corpuscular Volume 98 fL (80-100); Mean Platelet Volume 9.4 fL (9.1-12.4); NEUTROPHILS ABSOLUTE AUTO 8.75 K/mm3 (1.96-9.15); NEUTROPHILS PERCENT AUTO 92 % (41-73); Platelet Count 261 K/mm3 (150-400); RDW Coefficient Variation 18.5 % (11.7-14.2); RDW Standard Deviation 64.6 fL (35.1-46.3); Red Blood Cell Count 3.95 M/mm3 (3.80-5.20); White Blood Cell Count 9.53 K/mm3 (4.00-11.30)
--- NOTE | 2024-01-02 06:02 | NUR ---
Patient arrived to room from ED around 2320, admission completed with assistance of patient. Patient alert and oriented x4, compliant with care. Purewick in place for voids, tolerated well. IV antibiotics infused into left AC PIV, tolerated well. Patient mobilizing self in bed overnight, resting comfortably.
[2024-01-02 06:09] LABS: Albumin, Blood 2.9 g/dL (3.4-5.0); Albumin/Globulin Ratio 0.8 (0.8-1.8); Bilirubin, Total 0.8 mg/dL (0.1-1.0); Bun/Creatinine Ratio 20.3 (12.0-20.0); Calcium, Blood 8.9 mg/dL (8.5-10.1); Creatinine, Blood 0.79 mg/dL (0.40-1.00); Globulin, Blood 3.6 g/dL (2.2-4.0); Potassium, Blood 3.9 mmol/L (3.5-5.5); Total Protein, Blood 6.5 g/dL (6.4-8.2)
[2024-01-02 07:02] VITALS: BP 140/78
[2024-01-02] MEDS ORDERED: Apixaban 5 MG Tab PO SCH (09:00)
[2024-01-02] MEDS ORDERED: Losartan Potassium 25 MG Tab PO SCH (09:00)
[2024-01-02] MEDS ORDERED: Furosemide 10 MG/ML 4ML Vial IV SCH (09:00)
[2024-01-02] MEDS ORDERED: Metoprolol Succinate 50 MG TABCR PO SCH ×2 (09:00→18:00)
[2024-01-02] MEDS ORDERED: Potassium Chloride 10 Meq Tablet SA PO SCH ×3 (09:00)
[2024-01-02] MEDS ORDERED: Lactobacil 2-S.Thermo-Bifido 1 1 Cap PO SCH (09:00)
[2024-01-02] MEDS ORDERED: Sertraline HCl 100 MG Tab PO SCH (09:00)
[2024-01-02] MEDS ORDERED: Nicotine 14 MG PATCH TOP SCH (09:00)
[2024-01-02] MEDS ORDERED: Pravastatin Sodium 20 MG Tab PO SCH (09:00)
[2024-01-02 14:58] VITALS: BP 129/72
[2024-01-02] MEDS ORDERED: CefTRIAXone Sodium 1,000 MG in NS 100 ML IV SCH (16:00)
--- NOTE | 2024-01-02 16:46 | NUR ---
SHIFT SUMMARY PATIENT ALERT BUT PLEASANTLY CONFUSED. PATIENT STATED THAT SHE IS GOING TO CONTINUE TO SMOKE AND DOES NOT WEAR OXYGEN AT HOME. PATIENT SPOKE WITH DR. MCGARRY ABOUT CODE STATUS. PATIENT CURRENTLY FULL CODE, PATIENT STATES SHE DOES NOT WANT HER HEART RESTARTED BUT ALSO TOLD THE DR TO TALK TO HER SON. SON CONTACTED AND STATES THAT HE WILL BE HERE TOMORROW TO DISCUSS PLAN OF CARE AND REVIEW CODE STATUS.
[2024-01-02 19:53] VITALS: BP 129/68
[2024-01-02] MEDS ORDERED: Famotidine 20 MG Tab PO SCH (21:00)
[2024-01-03 04:54] VITALS: BP 117/87
--- NOTE | 2024-01-03 06:04 | NUR ---
Patient alert and oriented x2-3, VSS, resting comfortably in bed and dangling at side of bed overnight. 4L oxygen via nasal cannula maintained and tolerated well. Purewick system in place for voids in bed, tolerated appropriately. Patient frequently calling care staff into room, stating, "I have a UTI, I need Immodium!" Education provided regarding appropriate use of medications, as well as informing patient she is still receiving antibiotics that would help her infections.
[2024-01-03] MEDS ORDERED: Furosemide 40 MG Tab PO SCH (09:00)
[2024-01-03] MEDS ORDERED: PredniSONE 20 MG Tab PO SCH (09:00)
[2024-01-03 15:36] VITALS: BP 137/70
--- NOTE | 2024-01-03 17:38 | NUR ---
SHIFT SUMMARY PATIENT ALERT AND INTERACTIVE BUT CONFUSED. PATIENT EASILY IRRITABLE IF DOES NOT UNDERSTAND WHAT IS HAPPENING OR WHAT IS BEING ASKED. PATIENT CONTINUES TO DIURESE. PATIENT CONTINUES TO ASK ABOUT SMOKING. FAMILY SPOKE WITH DR. MCGARRY. POLST FORM COMPLETED. PATIENT NOW COMFORT CARE ON POLST. ORIGINAL GIVEN TO SON. PATIENT CHANGED TO DNR STATUS.
[2024-01-03 20:25] VITALS: BP 123/104
[2024-01-03] MEDS ORDERED: Metoprolol Succinate 50 MG TABCR PO SCH (21:00)
[2024-01-04 03:51] VITALS: BP 115/59
--- NOTE | 2024-01-04 05:07 | NUR ---
SHIFT SUMMARY PT RESTED DURING THE NIGHT. PT A&O X4, PLEASENT WITH CARE TONIGHT. PT TRANSFERS WITH 1P SBA. PUREWICK IN PLACE DRAINING YELLOW URINE, ATTENDS IN PLACE FOR INC EPISODES. PT ON 3L NC FOR SUPPORT. PT HAS HARSH COUGH BUT NONPRODUCTIVE. VSS. NO OTHER CONCERNS AT THIS TIME, CALL LIGHT WITHIN REACH
[2024-01-04 07:24] VITALS: BP 134/93
[2024-01-04] MEDS ORDERED: IPRAT-ALBUT 0.5-3 ML INH (14:45)
[2024-01-04] MEDS ORDERED: PRED20 PO (14:48)
--- NOTE | 2024-01-04 15:44 | NUR ---
DISCHARGE SUMMARY PT DC THIS SHIFT TO GO HOME ON HOSPICE. PT ACCOMPAINED BY SON VIA PRIVATE TRANSPORTATION TO [facility]. REPORT CALLED AND GIVEN TO NURSE AT 1540.
== END 2024-01-04 17:27 | disposition hospice, home (50) | DRG 291 ==
LOC: ER 18:39 → MEDS 22:36 → ENPENDDIS 01-04 13:51 → MEDS 01-04 17:27
PROVIDERS: Emergency Medicine; ADMIT Internal Medicine
DX: I11.0 Hypertensive heart disease with heart failure (principal); I50.33 Acute on chronic diastolic (congestive) heart failure; J96.21 Acute and chronic respiratory failure with hypoxia; J44.1 Chronic obstructive pulmonary disease with (acute) exacerbation; I69.351 Hemiplegia and hemiparesis following cerebral infarction affecting right dominant side; I48.20 Chronic atrial fibrillation, unspecified; F17.210 Nicotine dependence, cigarettes, uncomplicated; F03.90 Unspecified dementia, unspecified severity, without behavioral disturbance, psychotic disturbance, mood disturbance, and anxiety; F41.8 Other specified anxiety disorders; M19.90 Unspecified osteoarthritis, unspecified site; I34.0 Nonrheumatic mitral (valve) insufficiency; E78.5 Hyperlipidemia, unspecified; K21.9 Gastro-esophageal reflux disease without esophagitis; Z99.81 Dependence on supplemental oxygen; Z71.6 Tobacco abuse counseling; Z79.52 Long term (current) use of systemic steroids; Z79.01 Long term (current) use of anticoagulants; Z79.899 Other long term (current) drug therapy
CPT/HCPCS: 0241U; 36415; 71045; 80053; 83880; 84145; 84484; 85025; 93005; 93010; 94640; 94644; 94664; 94760; 94762; 96374; 99285-25; A9270; J0696; J1940; J2919; J7512